=== PATIENT | female | born 2005 | race Caucasian/White ===

== ENCOUNTER 2023-10-25 15:48 | Emergency (ER) | payer BC, OTHER ==
[2023-10-25 16:43] LABS: CORONAVIRUS COVID-19 NAA POSITIVE (NEGATIVE); INFLUENZA A NAA NEGATIVE (NEGATIVE); INFLUENZA B NAA NEGATIVE (NEGATIVE); RESPIRATORY SYNCYTIAL VIR NAA NEGATIVE (NEGATIVE)
== END 2023-10-25 17:00 | disposition home or self-care (01) ==
LOC: LL.ED 15:48
DX: U07.1 COVID-19 (principal); Z88.7 Allergy status to serum and vaccine
CPT/HCPCS: 0241U; 87651; 99284